=== PATIENT | female | born 1985 | race Caucasian/White ===

== ENCOUNTER 2023-06-19 07:53 | Emergency (ER) | payer OTHER, SELFPAY ==
--- NOTE | ~2023-06-19 | XR_ITS ---
XR knee RT 3V 06/19/2023 08:22 INDICATION: Right medial knee pain PROCEDURE: 3 views right knee COMPARISON: No prior studies for comparison. FINDINGS: Fracture, dislocation or subluxation is not identified. The soft tissues appear within norm al limits. No foreign bodies are identified. IMPRESSION: 1: NO ACUTE BONE OR JOINT ABNORMALITY IDENTIFIED. Reviewed, dictated and finalized at location A.
[2023-06-19 07:54] VITALS: BP 133/68; PULSE 61; RESP 14; TEMP 36.6; O2SAT 100
--- NOTE | 2023-06-19 09:05 | ED.LOWEXIN ---
HPI - Extremity Injury (Lower) General Chief Complaint: Extremity Injury, Lower Stated Complaint: hurt R knee Time Seen by Provider: 06/19/23 08:00 History of Present Illness HPI Narrative: 37-year-old female presented the ED for evaluation of right knee pain. 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 Patient states this was a very heavy piece of equipment and patient was also trying to take it around turns. Patient denies any specific incident of injury but states approximate 45 minutes after moving the cafeteria server when she stood up she had right medial knee pain. Patient did attempt to take ibuprofen and naproxen for pain control. Patient reports she was still having some pain on Wednesday. When she woke up this morning she was still having persistent pain so she presented to the ED for evaluation. Related Data Home Medications Medication Instructions Recorded Confirmed sertraline 50 mg tablet (Zoloft) 75 mg PO DAILY 05/03/23 05/03/23 spironolactone 50 mg tablet 50 mg PO DAILY 05/03/23 05/03/23 Allergies Allergy/AdvReac Type Severity Reaction Status Date / Time erythromycin base Allergy Unknown Nausea Verified 06/19/23 08:34 hydrocodone Allergy Unknown Nausea Verified 06/19/23 08:34 Review of Systems Review of Systems: All systems reviewed & are unremarkable except as noted in HPI and below PMFSH Family History Family History Grandparent Diabetes mellitus Family history of glaucoma Hypertension Cerebrovascular accident Family history of malignant neoplasm Family history of kidney disease Family history of malignant neoplasm of breast Family history of coronary artery disease Social History Social History Smoking status: Never smoker Alcohol intake: never Exam Narrative: APPEARANCE: Well appearing, no pain, no distress, well-nourished. HEAD: normocephalic, atraumatic. EYES: PERRLA/EOMI, conjunctivae clear. NOSE: Normal no drainage NECK: Supple. No adenopathy, no masses. RESPIRATORY: Airway patent, respirations nonlabored. Clear to auscultation bilaterally, no rales, rhonchi, wheezing. CARDIOVASCULAR: Regular rate and rhythm without murmurs rubs or gallops. ABDOMINAL: Soft, nontender, nondistended, normal bowel sounds MUSCULOSKELETAL: Right medial knee tenderness to palpation. No effusion, no deformity. NEURO: Alert. Cranial nerves II through XII intact. Grossly intact SKIN: Warm, dry. Normal Color PSYCHIATRIC: Normal affect/mood. Course Course Emergency Course: 37-year-old female presented ED for evaluation of right knee pain. X-ray showed no acute fracture or dislocation. Patient's knee exam is consistent with a strain. Patient was provided knee immobilizer and crutches for limited weightbearing. Patient was encouraged to have close follow-up with her primary care physician if she did not have improving symptoms. All questions and concerns were addressed. Vital Signs Vital signs: Vital Signs Temperature 97.9 F 06/19/23 07:54 Pulse Rate 61 06/19/23 07:54 Respiratory Rate 14 06/19/23 07:54 Blood Pressure 133/68 06/19/23 07:54 Pulse Oximetry 100 06/19/23 07:54 Oxygen Delivery Room Air 06/19/23 07:54 Temperature 97.9 F 06/19/23 07:54 Pulse Rate 64 06/19/23 09:35 Respiratory Rate 18 06/19/23 09:35 Blood Pressure 110/69 06/19/23 09:35 Pulse Oximetry 100 06/19/23 09:35 Oxygen Delivery Room Air 06/19/23 07:54 MDM - Extremity Injury (Lower) Differential Diagnosis Differential diagnosis: Likely fracture of femur and other (Knee injury) Imaging Data Radiologist's impression: Impressions Knee X-Ray 06/19/23 08:24 IMPRESSION: 1: NO ACUTE BONE OR JOINT ABNORMALITY IDENTIFIED. Discharge Plan Discharge Clinical Impression: Strain of right knee Patient Disposition: H
[2023-06-19 09:35] VITALS: BP 110/69; PULSE 64; RESP 18; O2SAT 100
== END 2023-06-19 09:37 | disposition home or self-care (01) ==
PROVIDERS: Emergency Provider Emergency Medicine; PCP Family Medicine
DX: S86.911A Strain of unspecified muscle(s) and tendon(s) at lower leg level, right leg, initial encounter (principal); X50.0XXA Overexertion from strenuous movement or load, initial encounter
CPT/HCPCS: 73562; 99283

== ENCOUNTER 2023-11-23 12:42 | Emergency (ER) | payer OTHER, SELFPAY ==
[2023-11-23 13:17] VITALS: BP 112/69; PULSE 65; RESP 16; TEMP 36.6; O2SAT 100
--- NOTE | 2023-11-23 13:52 | ED.URI ---
HPI - URI/Sore Throat General Chief Complaint: Upper Respiratory Infection Stated Complaint: Cough, Congestion, Earache Time Seen by Provider: 11/23/23 13:30 Source: patient Mode of arrival: ambulatory Limitations: no limitations History of Present Illness HPI Narrative: Naa is a 38-year-old female patient presenting to the clinic today with complaints of cough, congestion, and earache x2 weeks. She reports she is blowing out some yellow nasal drainage and having some sinus pressure. Denies any fever chills. Denies any shortness of breath or chest pain. MD elicited complaint: cough, nasal congestion and sinus pain Related Data Home Medications Medication Instructions Recorded Confirmed spironolactone 50 mg tablet 50 mg PO DAILY 05/03/23 07/02/23 Allergies Allergy/AdvReac Type Severity Reaction Status Date / Time erythromycin base Allergy Unknown Nausea Verified 07/02/23 11:12 hydrocodone Allergy Unknown Nausea Verified 07/02/23 11:12 Review of Systems Review of Systems: Pertinent positives per HPI. Patient denies any fever, chills, rash, headache, visual changes, dizziness, cough, shortness of breath, chest pain, palpitations, nausea, vomiting, diarrhea, constipation, abdominal pain, or any urinary issues. PMFSH Family History Family History Grandparent Diabetes mellitus Family history of glaucoma Hypertension Cerebrovascular accident Family history of malignant neoplasm Family history of kidney disease Family history of malignant neoplasm of breast Family history of coronary artery disease Social History Social History Smoking status: Never smoker Alcohol intake: never Comments At the time of my signature, I reviewed and agree with the nursing past medical, surgical, social, and family history. There is no relevant family history pertinent to the patient complaint. Exam Narrative: General: Well-developed, well nourished, in no apparent distress Head: Normocephalic, atraumatic Eyes: Pupils equally round and reactive to light bilaterally, EOM intact, sclera and conjunctive clear, no discharge, lids normal Ears: TMs intact and clear, ear canals clear, no drainage, grossly hearing normal. Nose: Nares patent, yellow nasal discharge, moderate inflammation, maxillary and frontal sinus tenderness. Mouth: Oral pharynx without lesions or masses, good dentition, MMM. Postnasal drip Neck: Supple, trachea midline, no enlargement of anterior or posterior cervical nodes, no thyroid masses or goiter palpable. Cardio: Regular rate and rhythm, s1 and s2 normal, no murmur appreciated. Resp: Clear to auscultation bilaterally, no rhonchi, rales, wheezing or rubs Course Course Emergency Course: Portions of this record may have been created with voice recognition software. Level of Care: Express Care Visit Vital Signs Vital signs: Vital Signs Temperature 36.6 C 11/23/23 13:17 Pulse Rate 65 11/23/23 13:17 Respiratory Rate 16 11/23/23 13:17 Blood Pressure 112/69 11/23/23 13:17 Pulse Oximetry 100 11/23/23 13:17 Temperature 36.6 C 11/23/23 13:17 Pulse Rate 65 11/23/23 13:17 Respiratory Rate 16 11/23/23 13:17 Blood Pressure 112/69 11/23/23 13:17 Pulse Oximetry 100 11/23/23 13:17 Vital signs reviewed MDM - URI/Sore Throat MDM Narrative Medical decision making narrative: At the time of visit patient is resting comfortably on the exam table. Patient appears to be nontoxic. I suspect patient has acute bacterial rhinosinusitis. Prescription for Augmentin was sent to the pharmacy. Supportive measures were discussed with the patient and they voiced understanding discharge instructions and agrees to treatment plan. Return precautions reviewed Differential Diagnosis Differential diagnosis: Likely upper respiratory infection, otitis media, s
== END 2023-11-23 14:03 | disposition home or self-care (01) ==
PROVIDERS: Emergency Provider Nurse Practitioner Family; PCP Family Medicine
DX: J01.90 Acute sinusitis, unspecified (principal)
CPT/HCPCS: 99213; G0463

== ENCOUNTER 2024-07-28 13:04 | Emergency (ER) | payer OTHER, SELFPAY ==
--- NOTE | 2024-07-28 13:08 | ED.SKABFB ---
HPI - Skin/Abscess/Foreign Bdy General Chief complaint: Skin/Abscess/Foreign Body Stated complaint: Rash Time Seen by Provider: 07/28/24 13:18 Source: patient and RN notes reviewed Mode of arrival: ambulatory Limitations: no limitations History of Present Illness HPI narrative: 38-year-old female presents concern for itchy rash on her left buttock for 3 days. Reports the area started off as a small pimple so she was putting red nail on it. She reports the area is not painful but itchy. She has not put anything else on the rash. She denies any other areas of rash at this time MD complaint: rash Related Data Home Medications Medication Instructions Recorded Confirmed spironolactone 50 mg tablet 50 mg PO DAILY 05/03/23 12/22/23 Allergies Allergy/AdvReac Type Severity Reaction Status Date / Time erythromycin base Allergy Unknown Nausea Verified 12/22/23 14:33 hydrocodone Allergy Unknown Nausea Verified 12/22/23 14:33 Review of Systems Review of Systems: CONSTITUTIONAL: Denies malaise, chills, sweats, or fever. EYES: Denies redness, or discharge. ENT: Denies rhinorrhea, congestion, swollen lips, swollen tongue CARDIOVASCULAR: Denies chest pain, palpitations, or edema. RESPIRATORY: Denies cough or dyspnea. GASTROINTESTINAL: Denies abdominal pain, nausea, vomiting SKIN: Reports itchy rash on her left buttock MUSCULOSKELETAL: Denies joint pain or myalgia. NEUROLOGIC: Denies headache. All systems reviewed & are unremarkable except as noted in HPI and below PMFSH Family History Family History Grandparent Diabetes mellitus Family history of glaucoma Hypertension Cerebrovascular accident Family history of malignant neoplasm Family history of kidney disease Family history of malignant neoplasm of breast Family history of coronary artery disease Social History Social History Smoking status: Never smoker Alcohol intake: never Comments At time of signature, agree with nursing past medical, surgical, social and family history. There is no relevant family history pertinent to the presenting complaint Exam Narrative: GENERAL: Well-appearing, well-nourished, and in no acute distress. HEAD: Normocephalic, atraumatic. EYES: PERRLA, conjunctivae clear, and EOMI. ENT: Mucous membranes moist. Oropharynx without edema, erythema or lesions. NECK: Supple. No lymphadenopathy CHEST: Clear to auscultation. No respiratory distress. HEART: Regular rate and rhythm. SKIN: Warm, dry. Approximately 6 cm x 2 cm raised confluent patch of erythema without vesicles noted NEURO: Alert and oriented x3. PSYCH: Normal mood and affect Course Course Emergency Course: Patient is aware of diagnosis, understands and agrees to treatment plan. Anticipatory guidance given. Patient agrees to follow-up as directed and is aware of reasons to seek care at the emergency department. Portions of this record may have been created with voice recognition software Level of Care: Express Care Visit Vital Signs Vital signs: Reviewed. MDM - Skin/Abscess/Foreign Bdy MDM Narrative Medical decision making narrative: Does not appear at this time to be erythema multiforme, bullous, SJS, TEN; no evidence at this time to suggest RMSF, endocarditis or Lyme disease; patient looks well, nontoxic and is tolerating oral intake; no neurologic signs or symptoms; no headache, photophobia or neck pain; afebrile; appropriate for initial outpatient treatment; discussed the importance of follow-up, patient agrees; question, viral exanthema, contact dermatitis, allergic dermatitis, eczema, urticaria, shingles, bacterial infection, tinea. No soft palate or uvula edema, no tongue, lip edema or other mucosal involvement, no respiratory compromise, no stridor, no wheezing, no wheezing, no history of syncope, no hypotension, no nausea, vomiting, or
[2024-07-28 13:10] VITALS: BP 123/84; PULSE 81; RESP 16; TEMP 37; O2SAT 99
== END 2024-07-28 13:34 | disposition home or self-care (01) ==
PROVIDERS: Emergency Provider Nurse Practitioner; PCP Family Medicine
DX: R21 Rash and other nonspecific skin eruption (principal)
CPT/HCPCS: 99213; G0463